=== PATIENT | male | born 1970 | race Caucasian/White ===

== ENCOUNTER 2017-07-24 01:56 | Emergency (ER) | payer MEDICAID ==
[2017-07-24 02:02] VITALS: RESP 18
[2017-07-24] MEDS ORDERED: IBUPROFEN 600 MG TAB PO ONE (02:41)
[2017-07-24] MEDS ORDERED: ACETAMINOPHEN 500 MG TAB PO ONE (02:41)
[2017-07-24] MEDS ORDERED: ONDANSETRON DISINTEGRATING 4 MG TAB PO ONE (02:42)
--- NOTE | 2017-07-24 03:18 | EDPHY ---
H & P Stated Complaint: HIKING FELL INTO A TABLE MOUNTAIN, LOW BACK PAIN,SAT IN HOT TUB BUT NOW HURTS ALOVER Time Seen by Provider: 07/24/17 02:19 HPI/ROS: HPI The patient presents with headache which he believes is a migraine which began a few hours ago. Earlier in the day, he was hiking, about 5 miles, he had across the [place] and slipped and fell landing on his coccyx. He was able to walk and continued his hike. He went into a hot tub to treat his pain he was having in his lower back. He then developed cold chills. He now is complaining of a left-sided throbbing headache which feels like prior migraines. He has not taken any medication for this.. REVIEW OF SYSTEMS Constitutional: No fever, no chills. Eyes: No discharge. ENT: No sore throat. Cardiovascular: No chest pain, no palpitations. Respiratory: No cough, no shortness of breath. Gastrointestinal: No abdominal pain, no vomiting. Genitourinary: No hematuria. Musculoskeletal: No back pain. Skin: No rashes. Neurological: No headache. PMHx: History of schizophrenia Soc Hx: Homeless, admits to marijuana use PHYSICAL General Appearance: Alert, no distress Eyes: Pupils equal and round no pallor or injection ENT, Mouth: Mucous membranes moist Respiratory: There are no retractions, lungs are clear to auscultation Cardiovascular: Regular rate and rhythm Gastrointestinal: Abdomen is soft and non-tender, no masses, bowel sounds normal Neurological: A&O, moves all extremities Skin: Warm and dry, no rashes Musculoskeletal: Neck is supple non tender Extremities: symmetrical, full range of motion Psychiatric: Patient is oriented X 3, there is no agitation Source: Patient Exam Limitations: No limitations - Personal History Current Tetanus/Diphtheria Vaccine: Yes Current Tetanus Diphtheria and Acellular Pertussis (TDAP): Yes - Medical/Surgical History Hx Asthma: No Hx Chronic Respiratory Disease: No Hx Diabetes: No Hx Cardiac Disease: No Hx Renal Disease: No Hx Cirrhosis: No Hx Alcoholism: No Hx HIV/AIDS: No Hx Splenectomy or Spleen Trauma: No Other PMH: paranoid schizophrenia, BIPOLAR, PTSD. - Social History Smoking Status: Current every day smoker Constitutional: Initial Vital Signs Temperature (C) 36.8 C 07/24/17 01:58 Heart Rate 111 H 07/24/17 01:58 Respiratory Rate 18 07/24/17 01:58 Blood Pressure 130/81 H 07/24/17 01:58 O2 Sat (%) 93 07/24/17 01:58 O2 Delivery Mode Room Air Allergies/Adverse Reactions: Penicillins Allergy (Verified 07/25/17 00:55) Home Medications: Medication Instructions Recorded OLANZapine DISINTEGR [ZyPREXA 10 mg PO HS #30 tab 12/02/14 ZYDIS (*)] Gabapentin [Neurontin 300 MG (*)] 900 mg PO TID 06/23/16 Medical Decision Making Differential Diagnosis: This is a 46-year-old man with homelessness, schizophrenia, currently not on any medications, who presents after a fall in the [place], landing on his coccyx, then developing a migraine-type headache. On exam, he does have mild tenderness of his coccyx with no overlying skin changes. His leg strength is full. He is complaining of a migraine headache. I have treated him here with ibuprofen, Tylenol, Zofran with complete resolution in his headache. He is feeling much better and would like to be discharged. I will send him out. - Data Points Medications Given: Discontinued Medications Acetaminophen (Tylenol) 1,000 mg PO EDNOW ONE Stop: 07/24/17 02:42 Last Admin: 07/24/17 02:45 Dose: 1,000 mg Ibuprofen (Motrin) 600 mg PO EDNOW ONE Stop: 07/24/17 02:42 Last Admin: 07/24/17 02:45 Dose: 600 mg Ondansetron HCl (Zofran Odt) 4 mg PO EDNOW ONE Stop: 07/24/17 02:43 Last Admin: 07/24/17 02:45 Dose: 4 mg Departure - Departure Disposition: Home, Routine, Self-Care Clinical Impression: Headache, Lower back pain Condition: Good Instructions: Migraine Headache (ED) Referrals: [facility],. [Clinic] - As per Instructions Stand Alone Forms: Statement of Treatment
[2017-07-24 03:35] VITALS: BP 123/85; PULSE 94; TEMP 98.8; O2SAT 95
== END 2017-07-24 03:33 | disposition home or self-care (01) ==
DX: S39.92XA Unspecified injury of lower back, initial encounter (principal); S09.90XA Unspecified injury of head, initial encounter; F17.200 Nicotine dependence, unspecified, uncomplicated; W01.0XXA Fall on same level from slipping, tripping and stumbling without subsequent striking against object, initial encounter; Y99.8 Other external cause status; Y93.01 Activity, walking, marching and hiking

== ENCOUNTER 2017-07-25 00:47 | Emergency (ER) | payer MEDICAID ==
[2017-07-25 00:55] VITALS: RESP 18
[2017-07-25] MEDS ORDERED: OLANZapine DISINTEGR 10 MG TAB PO ONE (01:23)
--- NOTE | 2017-07-25 01:26 | EDPHY ---
H & P Stated Complaint: fever/ paranoid Time Seen by Provider: 07/25/17 01:03 HPI/ROS: HPI The patient presents with fever which has been present for the last 2 days. He is feeling hot and cold intermittently. He also reports mild rhinorrhea and cough. He says he is feeling more paranoid than usual and has stopped taking his Zyprexa because it is hard for him to take when he is feeling this way. This is been present for the last 2 days. He went to [place] today to try to get seen at [facility] but there was a road closure that prevented him from getting seen there. He returns here for evaluation. I saw him yesterday after a fall in the [place] with back pain and a migraine headache.. REVIEW OF SYSTEMS Constitutional: Subjective fevers Eyes: No discharge. ENT: No sore throat. Cardiovascular: No chest pain, no palpitations. Respiratory: No cough, no shortness of breath. Gastrointestinal: No abdominal pain, no vomiting. Genitourinary: No hematuria. Musculoskeletal: No back pain. Skin: No rashes. Neurological: No headache. PMHx: History of paranoid schizophrenia Soc Hx: Homelessness, marijuana use PHYSICAL General Appearance: Alert, no distress Eyes: Pupils equal and round no pallor or injection ENT, Mouth: Mucous membranes moist Respiratory: There are no retractions, lungs are clear to auscultation Cardiovascular: Regular rate and rhythm Gastrointestinal: Abdomen is soft and non-tender, no masses, bowel sounds normal Neurological: A&O, moves all extremities Skin: Warm and dry, no rashes Musculoskeletal: Neck is supple non tender Extremities: symmetrical, full range of motion Psychiatric: Patient is oriented X 3, there is no agitation Source: Patient Exam Limitations: No limitations - Personal History Current Tetanus/Diphtheria Vaccine: Yes - Medical/Surgical History Hx Asthma: No Hx Chronic Respiratory Disease: No Hx Diabetes: No Hx Cardiac Disease: No Hx Renal Disease: No Hx Cirrhosis: No Hx Alcoholism: No Hx HIV/AIDS: No Hx Splenectomy or Spleen Trauma: No Other PMH: paranoid schizophrenia, BIPOLAR, PTSD. - Social History Smoking Status: Current every day smoker Constitutional: Initial Vital Signs Temperature (C) 37.5 C 07/25/17 00:50 Heart Rate 123 H 07/25/17 00:50 Respiratory Rate 18 07/25/17 00:50 Blood Pressure 127/92 H 07/25/17 00:50 O2 Sat (%) 92 07/25/17 00:50 O2 Delivery Mode Room Air Allergies/Adverse Reactions: Penicillins Allergy (Verified 07/25/17 00:55) Home Medications: Medication Instructions Recorded OLANZapine DISINTEGR [ZyPREXA 10 mg PO HS #30 tab 12/02/14 ZYDIS (*)] Gabapentin [Neurontin 300 MG (*)] 900 mg PO TID 06/23/16 Medical Decision Making Differential Diagnosis: 46-year-old male, history of schizophrenia versus schizoaffective disorder presents with fever for the last 2 days as well as paranoia. This is in the setting of not taking his Zyprexa which he usually does. On exam, he is generally well-appearing, he denies any SI or HI. Differential diagnosis includes influenza, other viral illness, decompensated schizoaffective disorder. In the emergency department, rapid flu was performed and was negative. He was given a dose of Zyprexa Zydis and then slept. When he awoke he was feeling much better, much less paranoid, felt comfortable being discharged. - Data Points Laboratory Results: 07/25/17 01:15 Nasal Influenza A PCR NEGATIVE FOR FLU A (NEGATIVE) Nasal Influenza B PCR NEGATIVE FOR FLU B (NEGATIVE) Medications Given: Discontinued Medications Ibuprofen (Motrin) 800 mg PO EDNOW ONE Stop: 07/25/17 01:51 Last Admin: 07/25/17 01:50 Dose: 800 mg Olanzapine (Zyprexa Zydis) 10 mg PO EDNOW ONE Stop: 07/25/17 01:24 Last Admin: 07/25/17 01:49 Dose: 10 mg Departure - Departure Disposition: Home, Routine, Self-Care Clinical Impression: Flu-like symptoms Condition: Good Instructions: Viral Syndrome (ED) Additional Instructions: Please return to the emergency department if your worse in any way. Referrals: Cheyenne Lowe, PAC [Primary Care Provider] - As per Instructions [facility],. [Clinic] - As per Instructions
[2017-07-25] MEDS ORDERED: IBUPROFEN 800 MG TAB PO ONE ×2 (01:48→01:50)
[2017-07-25 05:38] VITALS: BP 107/55; PULSE 75; TEMP 97.9; O2SAT 97
== END 2017-07-25 05:47 | disposition home or self-care (01) ==
DX: R50.9 Fever, unspecified (principal); F17.200 Nicotine dependence, unspecified, uncomplicated

== ENCOUNTER 2018-07-28 19:33 | Emergency (ER) | payer MEDICAID ==
--- NOTE | 2018-07-28 19:59 | EDPHY ---
H & P Smoking Status: Current every day smoker Time Seen by Provider: 07/28/18 19:40 HPI/ROS: HPI Rash, very paranoid, hallucinating. 47-year-old male on foot. This patient has a history paranoid schizophrenia, bipolar and PTSD. He presents to the emergency department initially complaining of a rash. He was witnessed in the waiting room to be extremely paranoid and hallucinating. On my evaluation. He states that he is currently he is concerned about a rash which is being treated by his primary care physician through [facility]. He is currently staying at the [facility]. ROS: Constitutional: No fever, no chills. No weakness. Eyes: No discharge. No changes in vision. ENT: No sore throat. No nasal congestion or rhinorrhea. Respiratory: No cough. No shortness of breath. Cardiac: No chest pain, no palpitations. Gastrointestinal: No abdominal pain, no vomiting, no diarrhea. Genitourinary: No hematuria. No dysuria or increased frequency with urination. Musculoskeletal: No back pain. No neck pain. No myalgias or arthralgias. Skin: As above. Neurological: No headache. No focal weakness or altered sensation. Past medical history: Paranoid schizophrenia, bipolar, PTSD. He is a [facility] client. Social history: Denies smoking. Denies alcohol. Homeless. Physical Exam: General Appearance: Alert, manic, paranoid, intermittently talks to himself and people who are not there. This patient is responding to questions appropriately and in full sentences. This patient appears well-hydrated and well-nourished. Eyes: Pupils equal and round and reactive to light at 4-2 mm bilaterally, no pallor or injection. No lid edema, erythema or injection. Respiratory: There are no retractions, lungs are clear to auscultation with good air movement bilaterally. Cardiovascular: Regular rate and rhythm. No murmur. Gastrointestinal: Abdomen is soft and nontender, no masses, bowel sounds normal. No focal tenderness at McBurney's point. No Salgado sign. Neurological: Motor sensory function is grossly intact. Cranial nerves are normal. Gait is normal. Skin: Warm and dry, I do not appreciate any significant rash. No petechiae. No purpura. Musculoskeletal: Neck is supple and nontender. Extremities are symmetrical. All joints range without pain or impingement. Psychiatric: No agitation. No depression. Database: EKG: Imaging: Procedures: Emergency department course: Triage vital signs reviewed. He is mildly tachycardic. He is moderately hypertensive. On exam, the patient does not present with any significant rash. He is very paranoid, manic and hallucinating. I discussed evaluation by Behavioral Health. He is in agreement. Appropriate blood work has been sent. 9:00 p.m., care was turned over to Dr. Bennett. Behavioral health evaluation pending. Differential Diagnosis: The differential diagnosis on this patient includes but is not limited to paranoid schizophrenia, bipolar with acute manic state, psychosis. This represents a partial list of diagnoses considered. These considerations are based on history, physical exam, past history, reassessment and diagnostic testing. (Margot Carcamo) Constitutional: Initial Vital Signs Temperature (C) 37.0 C 07/28/18 19:35 Heart Rate 108 H 07/28/18 19:35 Respiratory Rate 16 07/28/18 19:35 Blood Pressure 158/116 H 07/28/18 19:35 O2 Sat (%) 95 07/28/18 19:35 O2 Delivery Mode Room Air O2 (L/minute) 97 Allergies/Adverse Reactions: Penicillins Allergy (Verified 07/28/18 19:37) Home Medications: Medication Instructions Recorded NK [No Known Home Meds] 07/28/18 Medical Decision Making ED Course/Re-evaluation: 0500: Patient resting comfortably without complaint. Patient positive for methamphetamine Patient has a history of schizoaffective disorder. Plan will be for mid day evaluation. At 8:30 a.m. Patient signed over to Dr. Morfin. Still pending mental health evaluation. (Krishna Solis) I assumed care of the patient at 8:30 AM Re-evaluated the patient at 12:00 p.m.: He has metabolized his methamphetamine. He is very remorseful that he use this drug last night. He plans to avoid going to the part of the city today where he typically is offered methamphetamine. The patient denies any suicidal or homicidal ideation. The patient is plugged into the local prison system and does plan on staying at the prison this evening. He does not wish to be evaluated by [facility] which I feel is reasonable. I have terminated the patient's detainer at noon. (Tom Morfin) 07/28/18: I assumed care of this pt at 9pm. On an M1 hold for acute psychosis. Awaiting urine tox screen. Signed over to Dr. Solis at 110m. (Katherine Bennett) - Data Points Laboratory Results: Laboratory Results 07/28/18 20:28 07/28/18 20:28 Medications Given: Discontinued Medications Ibuprofen (Motrin) 600 mg PO EDNOW ONE Stop: 07/29/18 00:52 Last Admin: 07/29/18 00:54 Dose: 600 mg Departure - Departure Disposition: [facility] Acute Clinical Impression: Methamphetamine abuse Condition: Good Instructions: Methamphetamine Abuse (ED) Additional Instructions: 1. Please follow-up with the mental health resources provided in the ED today. 2. [facility] does operate a 24/7 psychiatric crisis unit located at [facility]. The telephone number for the 24 hour crisis center is [phone]. 3. Please return to the ED if you are feeling suicidal, having thoughts of harming yourself/others or should you feel unsafe or have worsening symptoms. Referrals: Cheyenne Lowe, PAC [Primary Care Provider] - As per Instructions
[2018-07-28 20:34] LABS: PLATELET COUNT 278 10^3/uL (150-400)
[2018-07-29] MEDS ORDERED: IBUPROFEN 600 MG TAB PO ONE (00:51)
[2018-07-29 11:41] VITALS: BP 168/99
== END 2018-07-29 12:08 | disposition still patient (30) ==
DX: F15.151 Other stimulant abuse with stimulant-induced psychotic disorder with hallucinations (principal); F20.0 Paranoid schizophrenia; F43.10 Post-traumatic stress disorder, unspecified; Z59.0 Homelessness
CPT/HCPCS: 80305; G0480